=== PATIENT | female | born 1935 | race Caucasian/White ===

== ENCOUNTER → 2018-10-26 08:50 | Outpatient (CLI) | payer MEDICARE, SELFPAY ==
[2018-10-26 09:58] LABS: Creatinine Urine Random 136.2 mg/dL
[2018-10-26 10:04] LABS: Alanine Aminotransferase 27 IU/L (9-52); Albumin 4.2 g/dL (3.5-5.0); Albumin Globulin Ratio 1.8 (1.0-2.8); Alkaline Phosphatase 73 U/L (38-126); Aspartate Aminotransferase 21 IU/L (14-36); Bilirubin Total 0.5 mg/dL (0.2-1.3); Blood Urea Nitrogen 18 mg/dL (7-17); Calcium 9.7 mg/dL (8.4-10.2); Carbon Dioxide 31 mmol/L (22-32); Chloride 100 mmol/L (98-107); Cholesterol 157 mg/dL (140-199); Estimated Glomerular Filt Rate 53.1 mL/min (>60); Globulin 2.4 g/dL (1.7-4.1); Glucose 95 mg/dL (80-110); HDL Cholesterol 69 mg/dL (40-60); HEMOLYSIS < 15 (0-50); LDL Cholesterol Calculated 59 mg/dL (<100); Potassium 4.3 mmol/L (3.4-5.1); Sodium 141 mmol/L (137-145); Total Protein 6.6 g/dL (6.3-8.2); Triglycerides 144 mg/dL (35-150)
[2018-10-28 15:07] LABS: Fecal Immunochemical Test NOT DETECTED
== END ==
PROVIDERS: Family Provider Physician Assistant; PCP Physician Assistant; Visit Provider Physician Assistant
DX: E78.2 Mixed hyperlipidemia (principal); I10 Essential (primary) hypertension; Z12.11 Encounter for screening for malignant neoplasm of colon
CPT/HCPCS: 36415; 80053; 80061; 82043; 82274; 82570

== ENCOUNTER → 2019-12-22 09:46 | Outpatient (CLI) | payer MEDICARE, SELFPAY ==
[2019-12-22 10:42] LABS: Creatinine Urine Random 73.2 mg/dL
[2019-12-22 10:44] LABS: Alanine Aminotransferase 19 IU/L (<35); Albumin 4.3 g/dL (3.5-5.0); Albumin Globulin Ratio 1.5 (1.0-2.8); Alkaline Phosphatase 76 U/L (38-126); Aspartate Aminotransferase 25 IU/L (14-36); BUN Creatinine Ratio 14.5 (6-22); Bilirubin Total 0.8 mg/dL (0.2-1.3); Blood Urea Nitrogen 16 mg/dL (7-17); Calcium 9.7 mg/dL (8.4-10.2); Carbon Dioxide 32 mmol/L (22-32); Chloride 98 mmol/L (98-107); Cholesterol 198 mg/dL (140-199); Estimated Glomerular Filt Rate 47.3 mL/min (>60); Globulin 2.9 g/dL (1.7-4.1); Glucose 102 mg/dL (80-110); HDL Cholesterol 75 mg/dL (40-60); HEMOLYSIS < 15 (0-50); LDL Cholesterol Calculated 90 mg/dL (<100); Potassium 3.7 mmol/L (3.4-5.1); Sodium 138 mmol/L (137-145); Total Protein 7.2 g/dL (6.3-8.2); Triglycerides 165 mg/dL (35-150)
[2019-12-22 10:48] LABS: Microalbumi Creatinin Ratio Ur 27.3 ug/mg CR (<30)
== END ==
PROVIDERS: Family Provider Physician Assistant; PCP Physician Assistant; Referring Provider Physician Assistant; Visit Provider Physician Assistant
DX: E78.2 Mixed hyperlipidemia (principal); I10 Essential (primary) hypertension
CPT/HCPCS: 36415; 80053; 80061; 82043; 82570

== ENCOUNTER → 2020-10-22 09:20 | Outpatient (CLI) | payer MEDICARE, SELFPAY ==
[2020-10-22 12:11] LABS: Alanine Aminotransferase 18 IU/L (<35); Albumin Globulin Ratio 1.6 (1.0-2.8); Alkaline Phosphatase 63 U/L (38-126); Aspartate Aminotransferase 24 IU/L (14-36); BUN Creatinine Ratio 26.3 (6-22); Bilirubin Total 0.5 mg/dL (0.2-1.3); Blood Urea Nitrogen 30 mg/dL (7-17); Carbon Dioxide 32 mmol/L (22-32); Chloride 104 mmol/L (98-107); Cholesterol 153 mg/dL (140-199); Estimated Glomerular Filt Rate 45.4 mL/min (>60); Globulin 2.5 g/dL (1.7-4.1); Glucose 104 mg/dL (80-110); HDL Cholesterol 69 mg/dL (40-60); HEMOLYSIS < 15 (0-50); LDL Cholesterol Calculated 63 mg/dL (<100); Potassium 4.7 mmol/L (3.4-5.1); Sodium 140 mmol/L (137-145); Total Protein 6.5 g/dL (6.3-8.2); Triglycerides 105 mg/dL (35-150)
[2020-10-22 12:19] LABS: Free T3, Triiodothyronine Free 2.84 pg/mL (2.77-5.27); Free T4, Direct Thyroxine 0.86 ng/dL (0.78-2.19)
[2020-10-22 12:33] LABS: Thyroid Stimulating Hormone 3.87 uIU/mL (0.47-4.68)
[2020-10-22 16:04] LABS: Creatinine Urine Random 125.3 mg/dL
[2020-10-22 16:10] LABS: Microalbumin Urine Random < 0.6 mg/dL (0-1.6)
== END ==
PROVIDERS: Family Provider Physician Assistant; PCP Nurse Practitioner; Referring Provider Nurse Practitioner; Visit Provider Nurse Practitioner
DX: E78.2 Mixed hyperlipidemia (principal); I10 Essential (primary) hypertension; Z79.899 Other long term (current) drug therapy
CPT/HCPCS: 36415; 80053; 80061; 82043; 82570; 84439; 84443; 84481

== ENCOUNTER → 2020-12-19 14:41 | Outpatient (CLI) | payer MEDICARE, SELFPAY ==
--- NOTE | 2020-12-19 14:42 | DI.RAD.S_ITS ---
PROCEDURE: XR DEXA AXIAL SKELETON INDICATIONS: menopause osteoporosis COMPARISON: None. FINDINGS: This blank DEXA report has been sent in error by the PACS system. The correct and complete report will be forthcoming in 1-2 days. Thank you for your patience and understanding. Dictated by: Lilian Sosa MD, PhD on 12/19/2020 at 17:27 Approved by: Lilian Sosa MD, PhD on 12/19/2020 at 17:27
--- NOTE | 2020-12-19 14:42 | DI.MG.S_ITS ---
BILATERAL DIGITAL SCREENING MAMMOGRAM 3D/2D WITH CAD: 12/19/2020 CLINICAL: Routine screening. Comparison is made to exams dated: 02/16/2018 mammogram, 01/09/2015 mammogram, and 02/06/2016 mammogram - [facility]. There are scattered fibroglandular elements in both breasts. Current study was also evaluated with a Computer Aided Detection (CAD) system. No significant masses, calcifications, or other findings are seen in either breast. There has been no significant interval change. IMPRESSION: NEGATIVE There is no mammographic evidence of malignancy. A 1 year screening mammogram is recommended. This exam was interpreted at Station ID: [id number]. NOTE: For mammograms, a report in lay terms will be sent to the patient. Approximately 15% of breast malignancies will not be visualized mammographically. In the management of a palpable breast mass, a negative mammogram must not discourage biopsy of a clinically suspicious lesion. Electronically Signed By: Jose Rafael sue/jeff:12/19/2020 15:59:32 letter sent: Normal Exam ACR BI-RADS Category 1: Negative [id number]
== END ==
PROVIDERS: Family Provider Physician Assistant; PCP Nurse Practitioner; Referring Provider Nurse Practitioner; Visit Provider Nurse Practitioner
DX: Z12.31 Encounter for screening mammogram for malignant neoplasm of breast (principal); Z78.0 Asymptomatic menopausal state; Z90.722 Acquired absence of ovaries, bilateral; Z87.891 Personal history of nicotine dependence
CPT/HCPCS: 77063; 77067; 77080

== ENCOUNTER → 2022-02-28 08:40 | Outpatient (CLI) | payer MEDICARE, SELFPAY ==
[2022-02-28 09:23] LABS: Alanine Aminotransferase 27 IU/L (<35); Albumin 4.2 g/dL (3.5-5.0); Albumin Globulin Ratio 1.5 (1.0-2.8); Alkaline Phosphatase 61 U/L (38-126); Aspartate Aminotransferase 31 IU/L (14-36); BUN Creatinine Ratio 19.9 (6-22); Bilirubin Total 0.7 mg/dL (0.2-1.3); Blood Urea Nitrogen 27 mg/dL (7-17); Calcium 9.1 mg/dL (8.4-10.2); Carbon Dioxide 29 mmol/L (22-32); Chloride 105 mmol/L (98-107); Cholesterol 165 mg/dL (140-199); Estimated Glomerular Filt Rate 38 mL/min (>60); Globulin 2.8 g/dL (1.7-4.1); Glucose 102 mg/dL (80-110); HDL Cholesterol 65 mg/dL (40-60); HEMOLYSIS < 15 (0-50); LDL Cholesterol Calculated 72 mg/dL (<100); Magnesium 1.9 mg/dL (1.6-2.3); Potassium 4.4 mmol/L (3.4-5.1); Sodium 140 mmol/L (137-145); Triglycerides 138 mg/dL (35-150)
[2022-02-28 09:43] LABS: Free T3, Triiodothyronine Free 2.91 pg/mL (2.77-5.27); Free T4, Direct Thyroxine 0.91 ng/dL (0.78-2.19)
[2022-02-28 09:55] LABS: Creatinine Urine Random 58.3 mg/dL
[2022-02-28 09:57] LABS: Thyroid Stimulating Hormone 6.35 uIU/mL (0.47-4.68)
[2022-02-28 10:05] LABS: Microalbumin Urine Random < 0.6 mg/dL (0-1.6)
== END ==
PROVIDERS: Family Provider Physician Assistant; PCP Nurse Practitioner; Referring Provider Nurse Practitioner; Visit Provider Nurse Practitioner
DX: I10 Essential (primary) hypertension (principal); E78.2 Mixed hyperlipidemia; N18.31 Chronic kidney disease, stage 3a; Z79.899 Other long term (current) drug therapy
CPT/HCPCS: 36415; 80053; 80061; 82043; 82570; 83735; 84439; 84443; 84481

== ENCOUNTER → 2022-03-05 11:42 | Outpatient (CLI) | payer MEDICARE, SELFPAY ==
[2022-03-05 13:19] LABS: BUN Creatinine Ratio 22.2 (6-22); Blood Urea Nitrogen 30 mg/dL (7-17); Calcium 9.7 mg/dL (8.4-10.2); Carbon Dioxide 29 mmol/L (22-32); Chloride 102 mmol/L (98-107); Estimated Glomerular Filt Rate 38 mL/min (>60); Glucose 98 mg/dL (80-110); HEMOLYSIS < 15 (0-50); Potassium 4.3 mmol/L (3.4-5.1); Sodium 140 mmol/L (137-145)
== END ==
PROVIDERS: Family Provider Physician Assistant; PCP Nurse Practitioner; Referring Provider Nurse Practitioner; Visit Provider Nurse Practitioner
DX: N18.31 Chronic kidney disease, stage 3a (principal)
CPT/HCPCS: 36415; 80048

== ENCOUNTER → 2022-04-17 08:21 | Outpatient (CLI) | payer MEDICARE, SELFPAY ==
--- NOTE | 2022-04-17 08:22 | DI.US.S_ITS ---
PROCEDURE: US RENAL COMPLETE INDICATIONS: Disorder of kidney and ureter, unspecified TECHNIQUE: Real-time scanning was performed of the kidneys and bladder, with image documentation. COMPARISON: None. FINDINGS: Kidneys: Right kidney measures 8.8 cm long; left kidney measures 10.2 cm long. Right renal cortical thickness is 1.4 cm; left renal cortical thickness is 1.6 cm. Renal cortical echotexture is normal. No hydronephrosis or nephrolithiasis. No suspicious solid mass lesions. At the inferior pole of the right kidney, there is a simple appearing cyst seen that measures up to 6.6 cm. Bladder: The urinary bladder is not well seen, as the patient was poorly prepped. Miscellaneous: No free pelvic fluid. IMPRESSION: Small right kidney size. Negative for hydronephrosis. Prominent right renal cyst seen inferiorly measuring 6.6 cm. Dictated by: Nathan Rasmussen M.D. on 04/17/2022 at 9:07 Approved by: Nathan Rasmussen M.D. on 04/17/2022 at 9:08
== END ==
PROVIDERS: Family Provider Physician Assistant; PCP Nurse Practitioner; Referring Provider Nurse Practitioner; Visit Provider Nurse Practitioner
DX: N28.9 Disorder of kidney and ureter, unspecified; Z80.51 Family history of malignant neoplasm of kidney; N28.1 Cyst of kidney, acquired
CPT/HCPCS: 76770

== ENCOUNTER → 2022-09-08 12:12 | Outpatient (CLI) | payer MEDICARE, SELFPAY ==
[2022-09-08 15:40] LABS: Hematocrit 36.8 % (36-46); Hemoglobin 12.4 g/dL (12.0-16.0)
[2022-09-08 16:27] LABS: Creatinine Urine Random 44.9 mg/dL
[2022-09-08 16:30] LABS: BUN Creatinine Ratio 16.3 (6-22); Blood Urea Nitrogen 22 mg/dL (7-17); Calcium 9.1 mg/dL (8.4-10.2); Carbon Dioxide 28 mmol/L (22-32); Chloride 99 mmol/L (98-107); Estimated Glomerular Filt Rate 38 mL/min (>60); Glucose 84 mg/dL (80-110); HEMOLYSIS < 15 (0-50); Potassium 3.9 mmol/L (3.4-5.1); Sodium 136 mmol/L (137-145)
[2022-09-08 16:38] LABS: Microalbumi Creatinin Ratio Ur 28.9 ug/mg CR (<30); Microalbumin Urine Random 1.3 mg/dL (0-1.6)
== END ==
PROVIDERS: Family Provider Physician Assistant; PCP Nurse Practitioner; Referring Provider Internal Medicine Nephrology; Visit Provider Internal Medicine Nephrology
DX: I10 Essential (primary) hypertension (principal); N18.32 Chronic kidney disease, stage 3b
CPT/HCPCS: 36415; 80048; 82043; 82570; 85014; 85018

== ENCOUNTER → 2023-02-16 08:16 | Outpatient (CLI) | payer MEDICARE, SELFPAY ==
[2023-02-16 09:45] LABS: Alanine Aminotransferase 19 IU/L (<35); Albumin 4.1 g/dL (3.5-5.0); Albumin Globulin Ratio 1.5 (1.0-2.8); Alkaline Phosphatase 73 U/L (38-126); Aspartate Aminotransferase 25 IU/L (14-36); BUN Creatinine Ratio 14.3 (6-22); Bilirubin Total 0.4 mg/dL (0.2-1.3); Blood Urea Nitrogen 18 mg/dL (7-17); Calcium 9.4 mg/dL (8.4-10.2); Carbon Dioxide 30 mmol/L (22-32); Chloride 99 mmol/L (98-107); Cholesterol 254 mg/dL (140-199); Estimated Glomerular Filt Rate 41 mL/min (>60); Globulin 2.7 g/dL (1.7-4.1); Glucose 89 mg/dL (80-110); HDL Cholesterol 78 mg/dL (40-60); HEMOLYSIS < 15 (0-50); LDL Cholesterol Calculated 128 mg/dL (<100); Potassium 4.2 mmol/L (3.4-5.1); Sodium 136 mmol/L (137-145); Total Protein 6.8 g/dL (6.3-8.2); Triglycerides 238 mg/dL (35-150)
[2023-02-16 09:50] LABS: Microalbumin Urine Random 0.9 mg/dL (0-1.6)
[2023-02-16 09:55] LABS: Creatinine Urine Random 39.3 mg/dL; Microalbumi Creatinin Ratio Ur 22.9 ug/mg CR (<30)
[2023-02-16 10:03] LABS: Free T3, Triiodothyronine Free 3.44 pg/mL (2.77-5.27); Free T4, Direct Thyroxine 0.79 ng/dL (0.78-2.19)
[2023-02-16 10:16] LABS: Thyroid Stimulating Hormone 5.39 uIU/mL (0.47-4.68)
== END ==
PROVIDERS: Family Provider Physician Assistant; PCP Nurse Practitioner; Referring Provider Nurse Practitioner; Visit Provider Nurse Practitioner
DX: E78.2 Mixed hyperlipidemia (principal); I10 Essential (primary) hypertension; N18.31 Chronic kidney disease, stage 3a; Z79.899 Other long term (current) drug therapy
CPT/HCPCS: 36415; 80053; 80061; 82043; 82570; 84439; 84443; 84481

== ENCOUNTER 2023-06-20 11:32 | Emergency (ER) | payer MEDICARE, SELFPAY ==
[2023-06-20] VITALS (25 sets, daily range): BP systolic 169–213; BP diastolic 80–112; PULSE 62–73; RESP 14–34; O2SAT 94–100; BMI 28.3
--- NOTE | 2023-06-20 11:38 | DI.RAD.S_ITS ---
PROCEDURE: XR HUMERUS LT 2V INDICATIONS: fall/pain TECHNIQUE: 2 views of the humerus were acquired. COMPARISON: [facility], , XR SHOULDER LT MIN 2V, 06/20/2023, 12:28. FINDINGS: Bones: Initial images of the left humerus and shoulder demonstrate anterior shoulder dislocation without fracture. Repeat x-ray of the left shoulder demonstrates successful reduction. Mild degenerative changes of the acromioclavicular joint are noted. Soft tissues: No suspicious soft tissue calcifications. IMPRESSION: Left anterior shoulder dislocation. Dictated by: Ajay Smith M.D. on 06/20/2023 at 13:01 Approved by: Ajay Smith M.D. on 06/20/2023 at 13:03
--- NOTE | 2023-06-20 11:38 | DI.RAD.S_ITS ---
PROCEDURE: XR SHOULDER LT MIN 2V INDICATIONS: fall/pain TECHNIQUE: 2 views of the shoulder were acquired. COMPARISON: None. FINDINGS: Bones: Initial images of the left humerus and shoulder demonstrate anterior shoulder dislocation without fracture. Mild degenerative changes of the acromioclavicular joint are noted. Soft tissues: No suspicious soft tissue calcifications. IMPRESSION: Left anterior shoulder dislocation. Dictated by: Ajay Smith M.D. on 06/20/2023 at 13:04 Approved by: Ajay Smith M.D. on 06/20/2023 at 13:05
--- NOTE | 2023-06-20 12:07 | ED_ITS ---
HPI - General Adult General Chief complaint: Extremity Injury, Upper Stated complaint: fell LT shoulder injury Time Seen by Provider: 06/20/23 11:41 Source: patient Mode of arrival: Ambulatory History of Present Illness HPI narrative: 87-year-old female. Not on anticoagulation. Is here for evaluation of a left shoulder injury. She states she was walking in her house. She tripped over the carpet in her house she has a new pair shoes and she thinks that they are more sticky than normal. She fell forward here did not hit her head. No loss of consciousness. No other injuries except for her left shoulder. Related Data Previous Rx's Medication Instructions Recorded acetaminophen 500 mg tablet 1,000 mg PO QID PRN fever or pain 12/30/22 (Tylenol Extra Strength) #180 tabs atenolol 50 mg tablet 50 mg PO QDAY #90 tabs 12/30/22 cholecalciferol (vitamin D3) 50 50 mcg PO BID #180 caps 12/30/22 mcg (2,000 unit) capsule diltiazem HCl 120 mg 120 mg PO HS #90 tabs 12/30/22 capsule,extended release 24 hr hydrochlorothiazide 25 mg tablet 25 mg PO Q DAY #90 tabs 12/30/22 lisinopril 20 mg tablet 20 mg PO DAILY #90 tabs 12/30/22 multivitamin with folic acid 400 1 tab PO QAM #90 tabs 12/30/22 mcg tablet omeprazole 20 mg capsule,delayed 20 mg PO DAILY PRN acid reflux #90 02/24/23 release caps hydrocodone 5 mg-acetaminophen 325 1 tab PO Q4-6H PRN pain #10 tabs 06/20/23 mg tablet Allergies Allergy/AdvReac Type Severity Reaction Status Date / Time tetracycline Allergy Intermediate NAUSEA AND Verified 06/20/23 12:23 DIARRHEA [id number] Reductase AdvReac Intermediate Memory Verified 06/20/23 12:23 Inhibitor issues erythromycin base AdvReac Unknown Verified 06/20/23 12:23 [From Erythrocin] Review of Systems Constitutional Constitutional: Reports system reviewed and no additional complaints, except as documented Musculoskeletal Musculoskeletal: Reports system reviewed and no additional complaints, except as documented Integumentary/Breasts Skin/Breast: Reports system reviewed and no additional complaints, except as documented Neurologic Neurologic: Reports system reviewed and no additional complaints, except as documented Patient History Medical History Acid reflux Adverse reaction to statin medication History of falling Memory changes Stage 3b chronic kidney disease (CKD) Surgical History S/P total abdominal hysterectomy and bilateral salpingo-oophorectomy Family History Brother Other and unspecified hyperlipidemia Father Essential hypertension Other and unspecified hyperlipidemia CVA (cerebral infarction) Cancer Hypertension Mother Essential hypertension Other and unspecified hyperlipidemia Coronary artery disease Sister Essential hypertension Other and unspecified hyperlipidemia Cancer Social History Smoking Status: Former smoker Tobacco: How many years used: 20 second hand exposure: No alcohol intake: current substance use type: does not use Smoking Status: Former smoker alcohol intake frequency: 0-2 drinks per day Substance Use Type: does not use Exam Initial Vital Signs Initial Vital Signs: Vital Signs Pulse Rate 65 06/20/23 11:33 Respiratory Rate 18 06/20/23 11:33 Blood Pressure 213/112 H 06/20/23 11:33 Pulse Oximetry 99 06/20/23 11:33 Oxygen Delivery Method Room Air 06/20/23 11:33 Const General: cooperative and healthy appearing Cardio Pulses: radial pulses present on the left Skin General: no rashes or lesions noted Neuro Sensory Exam: no sensory deficits noted Other: Sensation is intact to the distal left upper extremity and over the lateral deltoid Extrem Other: Left wrist and left elbow unremarkable. Has obvious deformity to the left shoulder. Procedures Orthopedic Joint Reduction Joint #1: Side: left Joint Reduction Location: shoulder Analgesia: procedural sedation Shoulder Technique Used (if applicable): Mil Post Reduction X-Ray Obtained: Yes Post Reduction X-Ray Results: reduced Splint Applied: Yes (Sling) Patient Tolerated Procedure: Well Orthopedic Splinting/Casting Injury #1: Side: left Upper Extremity Injury Location: shoulder Upper Extremity Immobilizer: sling/shoulder immobilizer Post splinting neuro exam: intact Post splinting vascular exam: intact Placed by: Provider Procedural Sedation Consent signed: Yes Time out performed: Yes Indication: fracture/dislocation reduction ASA Class: II Mallampati Airway Classification: Class II Preparation: quality assurance monitor chassis applied, pulse oximeter, capnometry used, supp lemental O2 applied, suction/airway equipment at bedside and IV secured IV Propofol dose (mg): 80 Intraservice time/total sedation time (min): 15 ED Sedation Level: Moderate (Concious) Patient Tolerated Procedure: Well Complications: none Course Orders Ordered: ED Orders 06/20/23 11:38 XR humerus LT 2V Stat XR shoulder LT min 2V Stat 06/20/23 12:27 XR shoulder LT min 2V Stat Sodium Chloride (Normal Saline 0.9%) 1,000 mls @ 125 mls/hr IV CONT PAWAN Last Admin: 06/20/23 12:21 Dose: 125 mls/hr Documented By: XOCHITL Discontinued Medications Propofol (Propofol 200 Mg/20 Ml Vial) 100 mg IV NOW ONE Stop: 06/20/23 11:59 Last Admin: 06/20/23 12:31 Dose: 80 mg Documented By: XOCHITL Vital Signs Vital signs: Vital Signs - 8 hr 06/20/23 11:33 06/20/23 12:30 06/20/23 12:32 Pulse Rate 65 64 65 Respiratory Rate 18 14 29 H Blood Pressure 213/112 H 185/95 H 195/90 H Pulse Oximetry 99 99 97 Oxygen Delivery Method Room Air 06/20/23 12:36 06/20/23 12:39 06/20/23 12:46 Pulse Rate 64 62 63 Respiratory Rate 21 20 14 Blood Pressure 172/80 H 169/83 H 169/91 H Pulse Oximetry 97 97 98 Oxygen Delivery Method 06/20/23 12:51 06/20/23 12:56 06/20/23 13:01 Pulse Rate 67 69 69 Respiratory Rate 14 14 14 Blood Pressure 174/95 H 180/96 H 185/98 H Pulse Oximetry 99 98 99 Oxygen Delivery Method 06/20/23 12:41 06/20/23 12:10 06/20/23 12:11 Pulse Rate 64 Respiratory Rate 18 Blood Pressure 204/97 H Pulse Oximetry 96 Oxygen Delivery Method 06/20/23 12:11 06/20/23 12:15 06/20/23 12:15 Pulse Rate 63 66 Respiratory Rate 21 21 Blood Pressure 189/86 H Pulse Oximetry 94 99 Oxygen Delivery Method 06/20/23 12:20 06/20/23 12:20 06/20/23 12:25 Pulse Rate 64 Respiratory Rate 21 Blood Pressure 183/92 H 185/95 H Pulse Oximetry 99 Oxygen Delivery Method 06/20/23 12:25 06/20/23 12:30 06/20/23 12:30 Pulse Rate 64 63 Respiratory Rate 27 H 24 Blood Pressure 195/90 H Pulse Oximetry 99 98 Oxygen Delivery Method 06/20/23 12:35 06/20/23 12:38 06/20/23 12:38 Pulse Rate 65 64 Respiratory Rate 24 18 Blood Pressure 172/80 H Pulse Oximetry 98 97 Oxygen Delivery Method 06/20/23 12:40 06/20/23 12:40 06/20/23 12:45 Pulse Rate 64 Respiratory Rate 27 H Blood Pressure 169/83 H 169/91 H Pulse Oximetry 97 Oxygen Delivery Method 06/20/23 12:45 06/20/23 12:50 06/20/23 12:50 Pulse Rate 64 66 Respiratory Rate 28 H 34 H Blood Pressure 174/95 H Pulse Oximetry 99 98 Oxygen Delivery Method 06/20/23 12:55 06/20/23 12:55 06/20/23 13:00 Pulse Rate 69 Respiratory Rate 26 H Blood Pressure 180/96 H 179/100 H Pulse Oximetry 98 Oxygen Delivery Method 06/20/23 13:00 06/20/23 13:01 06/20/23 13:01 Pulse Rate 69 69 Respiratory Rate 19 23 Blood Pressure 185/98 H Pulse Oximetry 99 99 Oxygen Delivery Method 06/20/23 13:05 06/20/23 13:10 06/20/23 13:15 Pulse Rate 70 73 70 Respiratory Rate 26 H 32 H 32 H Blood Pressure Pulse Oximetry 99 99 100 Oxygen Delivery Method Medical Decision Making Lab Data Labs: Point of Care Testing Test Results Not applicable Point of care testing: Point of Care Testing Test Results Not applicable Imaging Data Extremity x-ray #1: Radiologist's Impression: PROCEDURE:? XR SHOULDER LT MIN 2V ? INDICATIONS:? fall/pain ? TECHNIQUE:? 2 views of the shoulder were acquired.? ? COMPARISON:? None. ? FINDINGS:? ? Bones:? Initial images of the left humerus and shoulder demonstrate anterior shoulder dislocation without fracture.? Mild degenerative changes of the acromioclavicular joint are noted. ? Soft tissues:? No suspicious soft tissue calcifications.? ? IMPRESSION:? Left anterior shoulder dislocation. Extremity x-ray #2: Radiologist's Impression: ROCEDURE:? XR HUMERUS LT 2V ? INDICATIONS:? fall/pain ? TECHNIQUE:? 2 views of the humerus were acquired.? ? COMPARISON:? [facility], CR, XR SHOULDER LT MIN 2V, 06/20/2023, 12:28. ? FINDINGS:? ? Bones:? Initial images of the left humerus and shoulder demonstrate anterior shoulder dislocation without fracture.? Repeat x-ray of the left shoulder demonstrates successful reduction.? Mild degenerative changes of the acromioclavicular joint are noted. ? Soft tissues:? No suspicious soft tissue calcifications.? ? IMPRESSION:? Left anterior shoulder dislocation. Extremity x-ray #3: Radiologist's Impression: PROCEDURE:? XR SHOULDER LT MIN 2V ? INDICATIONS:? post reduction ? TECHNIQUE:? 2 views of the shoulder were acquired.? ? COMPARISON:? [facility], CR, XR SHOULDER LT MIN 2V, 06/20/2023, 11:44. ? FINDINGS:? ? Bones:? Repeat x-ray of the left shoulder demonstrates successful reduction. ? Soft tissues:? No suspicious soft tissue calcifications.? ? IMPRESSION:? Successful reduction of left anterior shoulder dislocation. MDM Narrative Medical decision making narrative: This was clearly a mechanical fall. No other injuries except for the left shoulder dislocation reported by the patient and also found on the exam. Patient was neurovascularly intact. Patient tolerated the procedural sedation well. Shoulder was reduced as described as above. Patient recovered from sedation well. Will discharge patient home with a sling. She was given care instructions and return precautions. She expressed understanding and agreement. Discharge Plan Departure Patient Disposition: Home Clinical Impression: Dislocation of shoulder Instructions: How to Use a Sling, DI for Shoulder Dislocation Activity Restrictions/Additional Instructions: The sling and for your comfort and you can come out of the sling in order to be than also to dress. You need to avoid the positions that we discussed here in the ER. I do recommend that you contact your primary doctor for referral to see Physical therapy. Also recommend you contact the orthopedic doctors with a number provided below for a follow-up. Return to the emergency department for new or worsening symptoms. Prescriptions: New hydrocodone-acetaminophen 5-325 mg tablet 1 tab PO Q4-6H PRN (Reason: pain) Qty: 10 0RF No Action acetaminophen [Tylenol Extra Strength] 500 mg tablet 1,000 mg PO QID PRN (Reason: fever or pain) Qty: 180 5RF Rx Instructions: Not to exceed 3000mg//24 hours atenolol 50 mg tablet 50 mg PO QDAY Qty: 90 3RF diltiazem HCl 120 mg capsule,extended release 24hr 120 mg PO HS Qty: 90 3RF hydrochlorothiazide 25 mg tablet 25 mg PO Q DAY Qty: 90 3RF lisinopril 20 mg tablet 20 mg PO DAILY Qty: 90 3RF Rx Instructions: Must have labs/visit prior to next refill. cholecalciferol (vitamin D3) 50 mcg (2,000 unit) capsule 50 mcg PO BID Qty: 180 3RF multivitamin with folic acid 400 mcg tablet 1 tab PO QAM Qty: 90 3RF omeprazole 20 mg capsule,delayed release(DR/EC) 20 mg PO DAILY PRN (Reason: acid reflux) Qty: 90 3RF Referrals: Nisreen Serrano ARNP [Primary Care Provider] - Saray Trevizo MD [Physician] - Stand Alone Forms: Patient Portal/API
[2023-06-20] MEDS: SODIUM CHLORIDE 0.9% 1,000 ML 125 ML IV (12:21)
--- NOTE | 2023-06-20 12:27 | DI.RAD.S_ITS ---
PROCEDURE: XR SHOULDER LT MIN 2V INDICATIONS: post reduction TECHNIQUE: 2 views of the shoulder were acquired. COMPARISON: [facility], , XR SHOULDER LT MIN 2V, 06/20/2023, 11:44. FINDINGS: Bones: Repeat x-ray of the left shoulder demonstrates successful reduction. Soft tissues: No suspicious soft tissue calcifications. IMPRESSION: Successful reduction of left anterior shoulder dislocation. Dictated by: Ajay Smith M.D. on 06/20/2023 at 13:05 Approved by: Ajay Smith M.D. on 06/20/2023 at 13:06
[2023-06-20] MEDS: propofoL 200 MG/20 ML VIAL 100 MG IV (12:31)
== END 2023-06-20 13:45 | disposition home or self-care (01) ==
PROVIDERS: Emergency Provider Emergency Medicine; Family Provider Physician Assistant; PCP Nurse Practitioner
DX: S43.005A Unspecified dislocation of left shoulder joint, initial encounter (principal); W01.0XXA Fall on same level from slipping, tripping and stumbling without subsequent striking against object, initial encounter; Z79.899 Other long term (current) drug therapy
CPT/HCPCS: 23650; 73030; 73060; 96360; 99152; 99284; J2704

== ENCOUNTER → 2023-08-25 08:27 | Outpatient (CLI) | payer MEDICARE, SELFPAY ==
[2023-08-25 09:10] LABS: Add Manual Diff / Slide Review NO; Basophils Absolute Auto 0 /uL (0-100); Basophils Percent Auto 0.8 % (0-2); Eosinophils Absolute Auto 100 /uL (0-450); Eosinophils Percent Auto 1.4 % (2-4); Hematocrit 36.4 % (36-46); Hemoglobin 12.5 g/dL (12.0-16.0); Lymphocytes Absolute Auto 1200 /uL (1100-4500); Mean Corpuscular HGB Conc 34.4 % (30-36); Mean Corpuscular Hemoglobin 34.2 PG (26-34); Mean Corpuscular Volume 99.4 fL (80-100); Monocytes Absolute Auto 500 /uL (0-900); Monocytes Percent Auto 8.8 % (3-14); Neutrophils Absolute Auto 4100 /uL (1500-7000); Platelet Count 254 X10^3/uL (150-400); Red Blood Cell Count 3.66 X10^6/uL (4.0-5.2); Red Cell Distribution Width 13.1 % (11.6-14.8); White Blood Cell Count 5.9 X10^3/uL (4.5-11.0)
[2023-08-25 09:40] LABS: Alanine Aminotransferase 17 IU/L (<35); Albumin 4.2 g/dL (3.5-5.0); Albumin Globulin Ratio 1.4 (1.0-2.8); Alkaline Phosphatase 65 U/L (38-126); Aspartate Aminotransferase 23 IU/L (14-36); BUN Creatinine Ratio 20.5 (6-22); Bilirubin Total 0.5 mg/dL (0.2-1.3); Blood Urea Nitrogen 23 mg/dL (7-17); Calcium 9.8 mg/dL (8.4-10.2); Carbon Dioxide 29 mmol/L (22-32); Chloride 99 mmol/L (98-107); Estimated Glomerular Filt Rate 48 mL/min (>60); Globulin 2.9 g/dL (1.7-4.1); Glucose 94 mg/dL (80-110); HEMOLYSIS < 15 (0-50); Potassium 4.5 mmol/L (3.4-5.1); Sodium 136 mmol/L (137-145); Total Protein 7.1 g/dL (6.3-8.2)
[2023-08-25 09:55] LABS: Free T3, Triiodothyronine Free 3.34 pg/mL (2.77-5.27); Free T4, Direct Thyroxine 0.85 ng/dL (0.78-2.19)
[2023-08-25 10:09] LABS: Thyroid Stimulating Hormone 3.26 uIU/mL (0.47-4.68)
== END ==
PROVIDERS: Family Provider Physician Assistant; PCP Nurse Practitioner; Referring Provider Nurse Practitioner; Visit Provider Nurse Practitioner
DX: N18.32 Chronic kidney disease, stage 3b (principal); I10 Essential (primary) hypertension; R53.83 Other fatigue
CPT/HCPCS: 36415; 80053; 84439; 84443; 84481; 85025

== ENCOUNTER → 2024-03-02 09:39 | Outpatient (CLI) | payer MEDICARE, SELFPAY ==
[2024-03-02 10:31] LABS: Add Manual Diff / Slide Review NO; Basophils Absolute Auto 0 /uL (0-100); Basophils Percent Auto 0.8 % (0-2); Eosinophils Absolute Auto 100 /uL (0-450); Eosinophils Percent Auto 1.8 % (2-4); Hematocrit 36.5 % (36-46); Hemoglobin 12.4 g/dL (12.0-16.0); Lymphocytes Absolute Auto 1000 /uL (1100-4500); Mean Corpuscular Hemoglobin 33.8 PG (26-34); Mean Corpuscular Volume 99.4 fL (80-100); Monocytes Absolute Auto 500 /uL (0-900); Monocytes Percent Auto 8.7 % (3-14); Neutrophils Absolute Auto 3900 /uL (1500-7000); Neutrophils Percent Auto 70.7 % (50-75); Platelet Count 250 X10^3/uL (150-400); Red Blood Cell Count 3.67 X10^6/uL (4.0-5.2); Red Cell Distribution Width 12.8 % (11.6-14.8); White Blood Cell Count 5.5 X10^3/uL (4.5-11.0)
[2024-03-02 11:15] LABS: Alanine Aminotransferase 15 IU/L (<35); Albumin 4.3 g/dL (3.5-5.0); Albumin Globulin Ratio 1.8 (1.0-2.8); Alkaline Phosphatase 68 U/L (38-126); Aspartate Aminotransferase 25 IU/L (14-36); Bilirubin Total 0.6 mg/dL (0.2-1.3); Blood Urea Nitrogen 25 mg/dL (7-17); Calcium 9.9 mg/dL (8.4-10.2); Carbon Dioxide 29 mmol/L (22-32); Chloride 105 mmol/L (98-107); Cholesterol 247 mg/dL (140-199); Estimated Glomerular Filt Rate 41 mL/min (>60); Globulin 2.4 g/dL (1.7-4.1); Glucose 94 mg/dL (80-110); HDL Cholesterol 79 mg/dL (40-60); HEMOLYSIS < 15 (0-50); LDL Cholesterol Calculated 135 mg/dL (<100); Potassium 5.3 mmol/L (3.4-5.1); Sodium 138 mmol/L (137-145); Total Protein 6.7 g/dL (6.3-8.2); Triglycerides 163 mg/dL (35-150)
[2024-03-02 16:36] LABS: Creatinine Urine Random 57.7 mg/dL
[2024-03-02 16:38] LABS: Microalbumi Creatinin Ratio Ur 29.4 ug/mg CR (<30); Microalbumin Urine Random 1.7 mg/dL (0-1.6)
== END ==
PROVIDERS: Family Medicine; Family Provider Physician Assistant; PCP Nurse Practitioner; Referring Provider Nurse Practitioner; Visit Provider Nurse Practitioner
DX: I12.9 Hypertensive chronic kidney disease with stage 1 through stage 4 chronic kidney disease, or unspecified chronic kidney disease (principal); N18.32 Chronic kidney disease, stage 3b; E78.2 Mixed hyperlipidemia
CPT/HCPCS: 36415; 80053; 80061; 82043; 82570; 85025